=== PATIENT | female | born 1955 | race Caucasian/White ===

== ENCOUNTER 2017-10-16 18:32 | Emergency (ER) | payer OTHER ==
[2017-10-16] MEDS: HYDROCODONE/APAP (5/325) TAB PO (19:43)
[2017-10-16] MEDS: KETOROLAC 15 MG INJ IM (21:29)
== END 2017-10-16 21:57 | disposition home or self-care (01) ==
LOC: FTE 18:32
DX: M25.562 Pain in left knee (principal); I10 Essential (primary) hypertension; E11.9 Type 2 diabetes mellitus without complications
CPT/HCPCS: 73562; 96372; 99284-25

== ENCOUNTER 2017-11-10 08:51 | Emergency (ER) | payer OTHER ==
[2017-11-10] MEDS: KETOROLAC 30 MG INJ IM (11:18)
== END 2017-11-10 11:49 | disposition home or self-care (01) ==
LOC: E/R 08:51
DX: M54.42 Lumbago with sciatica, left side (principal); M54.41 Lumbago with sciatica, right side; I10 Essential (primary) hypertension; E11.9 Type 2 diabetes mellitus without complications; E66.9 Obesity, unspecified
CPT/HCPCS: 96372; 99284-25